=== PATIENT | female | born 1945 | race Caucasian/White ===

== ENCOUNTER 2017-08-09 02:38 | Emergency (ER) | payer MEDICARE, OTHER ==
[~2017-08-09] VITALS: Ht 170.2 cm; Wt 103.0 kg
[~2017-08-09 02:38] MED LIST: ALDACTONE50 MG PO; CELEXA20 MG PO; LACTULOSE20 GM/30 M PO; LEVEMIR100 UNIT/1 SQ; METFORMIN; OMEPRAZOLE20 MG PO; ORAZINC220 MG PO; TRADJENTA5 MG PO; URSODIOL300 MG PO; XIFAXAN550 MG PO
[2017-08-09] MEDS ORDERED: PANTOPRAZOLE 40 MG 10ML VIAL IV STA (02:48)
[2017-08-09] MEDS ORDERED: VALCYTE450 MG PO (02:58)
[2017-08-09] MEDS ORDERED: DAPSONE100 MG PO (02:58)
[2017-08-09] MEDS ORDERED: MYCOPHENOLIC ACID PO (02:58)
[2017-08-09] MEDS ORDERED: PREDNISONE10 MG PO (02:58)
[2017-08-09] MEDS ORDERED: ASPIR 8181 MG PO (02:58)
[2017-08-09] MEDS ORDERED: NEXIUM40 MG PO (02:58)
[2017-08-09] MEDS ORDERED: CYCLOSPORINE100 MG PO (02:58)
[2017-08-09] MEDS ORDERED: METOPROLOL SUCC25 MG PO (02:58)
[2017-08-09] MEDS ORDERED: CYCLOSPORINE25 MG PO (02:58)
[2017-08-09] MEDS ORDERED: NOVOLOG100 UNITS1 (02:58)
[2017-08-09] MEDS ORDERED: LEVEMIR100 UNIT/1 (02:58)
[2017-08-09] MEDS ORDERED: MAGNESIUM/ALUMINUM/SIMETHICONE 30 ML UDC PO ONE (03:00)
[2017-08-09] MEDS ORDERED: LIDOCAINE VISC 2% SOLN 15 ML UDC PO ONE (03:00)
[2017-08-09] MEDS ORDERED: BELLADONNA ALK/PHENOBARBITAL 5 ML UDC PO ONE (03:00)
[2017-08-09 03:04] LABS: BASOPHILS % 0.2 % (0.0-1.0); HEMATOCRIT 31.8 % (34.2-44.1); HEMOGLOBIN 10.6 g/dL (12.0-16.0); LYMPHOCYTES # (AUTO) 0.8 (1.0-3.2); MEAN CORPUSCULAR HEMOGLOBIN 30.5 pg (28-32); MEAN CORPUSCULAR HGB CONC 33.3 g/dL (31-35); MEAN CORPUSCULAR VOLUME 91.4 fL (81-99); MONOCYTES # (AUTO) 0.5 (0.2-0.8); MONOCYTES % 10.9 % (4.4-11.3); NEUTROPHILS # (AUTO) 2.8 (2.1-6.9); NEUTROPHILS % 68.2 % (38.7-80.0); PLATELET COUNT 248 x10e3/uL (140-360); RED BLOOD COUNT 3.48 x10e6/uL (3.6-5.1); RED CELL DISTRIBUTION WIDTH 13.9 % (11.7-14.4)
[2017-08-09] MEDS ORDERED: VELTASSA PO (03:18)
[2017-08-09 03:25] LABS: ALBUMIN 3.6 g/dL (3.5-5.0); ALBUMIN/GLOBULIN RATIO 1.2 (0.8-2.0); CALCIUM 9.5 mg/dL (8.4-10.2); CREATININE, SERUM 1.55 mg/dL (0.57-1.11)
--- NOTE | 2017-08-09 04:04 | Diagnostic Imaging Report ---
EXAMINATION: CHEST SINGLE (PORTABLE) INDICATION: Chest pain. COMPARISON: None FINDINGS: TUBES and LINES: None. LUNGS: Lungs are not well inflated. Lungs are clear. There is no evidence of pneumonia or pulmonary edema. PLEURA: No pleural effusion or pneumothorax. HEART AND MEDIASTINUM: Cardiac size is mildly enlarged. BONES AND SOFT TISSUES: No acute osseous lesion. Soft tissues are unremarkable. UPPER ABDOMEN: No free air under the diaphragm. IMPRESSION: No acute thoracic abnormality. Signed by: Dr. Amilcar Farias M.D. on 08/09/2017 4:01 AM
[2017-08-09 04:07] VITALS: BP 156/94
== END 2017-08-09 03:45 | disposition home or self-care (01) ==
LOC: ER 02:38
DX: R07.89 Other chest pain (principal); K21.9 Gastro-esophageal reflux disease without esophagitis; E11.9 Type 2 diabetes mellitus without complications; Z85.05 Personal history of malignant neoplasm of liver
CPT/HCPCS: 36415; 71045; 80053; 82150; 82550; 82553; 83690; 84484; 85025; 93005; 99284

== ENCOUNTER 2017-09-07 15:38 | Emergency (ER) | payer MEDICARE, OTHER ==
[~2017-09-07] VITALS: Ht 170.2 cm; Wt 95.3 kg
[~2017-09-07 15:38] MED LIST changes: +ASPIR 8181 MG PO; +CYCLOSPORINE100 MG PO; +CYCLOSPORINE25 MG PO; +DAPSONE100 MG PO; +LEVEMIR100 UNIT/1; +METOPROLOL SUCC25 MG PO; +MYCOPHENOLIC ACID PO; +NEXIUM40 MG PO; +NOVOLOG100 UNITS1; +PREDNISONE10 MG PO; +VALCYTE450 MG PO; +VELTASSA PO
[2017-09-07 17:00] LABS: ANION GAP 14.3 mmol/L (8-16); CALCIUM 9.4 mg/dL (8.4-10.2); CREATININE, SERUM 1.35 mg/dL (0.57-1.11)
[2017-09-07 17:02] LABS: POTASSIUM 5.3 mmol/L (3.5-5.1)
== END 2017-09-07 19:39 | disposition home or self-care (01) ==
LOC: ER 15:38
DX: E87.5 Hyperkalemia (principal); I10 Essential (primary) hypertension; E11.9 Type 2 diabetes mellitus without complications; Z85.05 Personal history of malignant neoplasm of liver; Z94.4 Liver transplant status
CPT/HCPCS: 36415; 80048; 93005; 99283

== ENCOUNTER → 2017-11-07 | Day surgery (SDC) | payer MEDICARE, OTHER ==
[2017-11-03 13:58] LABS: BASOPHILS % 0.6 % (0.0-1.0); EOSINOPHILS # (AUTO) 0.1 (0.0-0.4); EOSINOPHILS % 3.9 % (0.0-6.0); HEMATOCRIT 35.6 % (34.2-44.1); HEMOGLOBIN 11.5 g/dL (12.0-16.0); LYMPHOCYTES # (AUTO) 0.7 (1.0-3.2); LYMPHOCYTES % 19.9 % (18.0-39.1); MEAN CORPUSCULAR HEMOGLOBIN 32.1 pg (28-32); MEAN CORPUSCULAR HGB CONC 32.3 g/dL (31-35); MEAN CORPUSCULAR VOLUME 99.4 fL (81-99); MONOCYTES # (AUTO) 0.5 (0.2-0.8); MONOCYTES % 12.9 % (4.4-11.3); NEUTROPHILS # (AUTO) 2.2 (2.1-6.9); NEUTROPHILS % 62.1 % (38.7-80.0); PLATELET COUNT 194 x10e3/uL (140-360); RED BLOOD COUNT 3.58 x10e6/uL (3.6-5.1); RED CELL DISTRIBUTION WIDTH 12.6 % (11.7-14.4)
[2017-11-03 14:04] LABS: INR 0.85; PARTIAL THROMBOPLASTIN TIME 27.9 seconds (23.8-35.5); PROTHROMBIN TIME 12.4 seconds (11.9-14.5)
[2017-11-03 14:10] LABS: ALBUMIN 3.8 g/dL (3.5-5.0); ALBUMIN/GLOBULIN RATIO 1.2 (0.8-2.0); ANION GAP 14.8 mmol/L (8-16); CALCIUM 9.4 mg/dL (8.4-10.2); CREATININE, SERUM 1.47 mg/dL (0.57-1.11)
[2017-11-03 14:16] LABS: POTASSIUM 5.8 mmol/L (3.5-5.1)
[~2017-11-07] MED LIST changes: +FENTANYL CITRATE/PF 100MCG/2 ML INJ ONE; -LEVEMIR100 UNIT/1; +LEVEMIR100 UNIT/1 SC; +MAGNESIUM OXID400 MG PO; +MIDAZOLAM HCL 2 MG/2 ML VIAL ONE; -NOVOLOG100 UNITS1; +NOVOLOG100 UNITS1 SC; +OR PHACO EYE KIT ONE; +PREOP PHACO EYE KIT ONE
[2017-11-07 15:15] VITALS: BP 155/92
== END | disposition home or self-care (01) ==
LOC: OR 12:02
PROVIDERS: ATTEND Ophthalmology
DX: H25.11 Age-related nuclear cataract, right eye (principal); I10 Essential (primary) hypertension; E11.65 Type 2 diabetes mellitus with hyperglycemia; G47.33 Obstructive sleep apnea (adult) (pediatric); Z01.812 Encounter for preprocedural laboratory examination; Z79.4 Long term (current) use of insulin; Z79.82 Long term (current) use of aspirin; Z94.4 Liver transplant status; Z85.05 Personal history of malignant neoplasm of liver
CPT/HCPCS: 36415 ×2; 66984; 80053; 82948; 85025; 85610; 85730; J2250; V2632

== ENCOUNTER → 2017-11-28 | Day surgery (SDC) | payer MEDICARE, OTHER ==
[2017-11-28 14:15] VITALS: BP 138/99
--- OUTSIDE RECORDS SUMMARY | 2017-11-28 14:46 | XMS REPORT | Clinical Summary ---
Author Author [facility] Organization [facility] Address Unknown Phone Unavailable Care Team Providers Care Wharf Tally Clerk Name Role Phone Luke Arredondo MD PCP Allergies No Known Allergies Current Medications Prescription Sig. Disp. Refills Start End Date Status Date LEVEMIR FLEXTOUCH 100 55 units nightly 1 06/17/19 Active unit/mL (3 mL) insulin 16 pen omeprazole (PriLOSEC) 20 TAKE ONE CAPSULE BY MOUTH 0 06/02/19 Active MG capsule TWICE A DAY (NEED APPT) 16 XIFAXAN 550 mg tablet Take 550 mg by mouth 2 0 20 Active (two) times a day. 16 lactulose 10 gram/15 mL Take by mouth as needed. Active solution calcium carbonate-vitamin Take 1 tablet by mouth Active D3 (CALCIUM 600 + D,3,) daily. 600 mg(1,500mg) -200 unit per tablet furosemide (LASIX) 40 mg Take 40 mg by mouth Active tablet daily. spironolactone Take 50 mg by mouth Active (ALDACTONE) 50 MG tablet daily. NOVOLOG FLEXPEN 100 INJECT 10 UNITS UNDER THE 2 06/08/19 Active unit/mL insulin pen SKIN 3 (THREE) TIMES 17 DAILY BEFORE MEALS. Active Problems Problem Noted Date HCC (hepatocellular carcinoma) (HCC) 11/18/2015 Anasarca 10/27/2015 Cirrhosis of liver without mention of alcohol 07/15/2015 Depressive disorder 07/15/2015 Nonalcoholic steatohepatitis (BURNS) 07/15/2015 Encephalopathy, portal systemic (HCC) 07/15/2015 Family History Medical History Relation Name Comments Cancer Father Stroke Maternal Grandfather Stroke Maternal Grandmother Relation Name Status Comments Father Maternal Grandfather Maternal Grandmother Social History Tobacco Use Types Packs/Day Years Used Date Current Every Day Smoker Cigarettes 0.25 Comments: started as a kid; then quit; started again at age 62 Alcohol Use Drinks/Week oz/Week Comments No Sex Assigned at Date Recorded Not on file Last Filed Vital Signs Not on file Plan of Treatment Health Maintenance Due Date Last Done Comments COLON CANCER SCREENING 09/12/1997 SHINGRIX VACCINE (#1) 09/12/1997 ZOSTER VACCINE 2007 PNEUMOCOCCAL 09/12/2012 POLYSACCHARIDE VACCINE AGE 65 AND OVER PNEUMOCOCCAL-13 09/12/2012 BREAST CANCER SCREENING 08/02/2017 08/03/2015 INFLUENZA VACCINE 2017 12/29/2015, 12/30/2014, 12/06/2012 Implants Implanted Type Area Manga Artist Device Expiration Model / Identifier Date Serial / Lot Diagnostic Catheters Tempo IPM N/A: N/A CORDJuristat PERNELL., A [id number] Selective Catheters - Visceral 5fr SUPPLIES [employer] / Shape Cobra Ii (C2) 100cm Flow PATIENT / Rate,Ml/Sec 22 Sideholes 0 Nylon BILLABLE Tungsten-Filled Neon Tip Slx Coating Guidewire Compatibility .038" 1200 Psi 5/Box - [id number] Implanted: 09/01/2015 (Quantity not on file) Stent In The Liver Stent Results Not on fileafter 11/27/2016 Insurance Payer Benefit Subscriber ID Type Phone Address Plan / Group MEDICARE MEDICARE xxxxxxxxxxx Medicare [place], [place] PART A AND B [facility] MED xxxxxxxx [place] [address]
== END | disposition home or self-care (01) ==
LOC: OR 10:44
PROVIDERS: ATTEND Ophthalmology
DX: H25.12 Age-related nuclear cataract, left eye (principal); E11.22 Type 2 diabetes mellitus with diabetic chronic kidney disease; I12.9 Hypertensive chronic kidney disease with stage 1 through stage 4 chronic kidney disease, or unspecified chronic kidney disease; N18.9 Chronic kidney disease, unspecified; G47.33 Obstructive sleep apnea (adult) (pediatric); Z94.4 Liver transplant status; Z85.05 Personal history of malignant neoplasm of liver; Z79.4 Long term (current) use of insulin
CPT/HCPCS: 36415; 66984; 82948; J2250; V2632

== ENCOUNTER 2018-10-25 22:58 | Emergency (ER) | payer MEDICARE, OTHER ==
[~2018-10-25] VITALS: Ht 170.2 cm; Wt 95.3 kg
[~2018-10-25 22:58] MED LIST changes: -FENTANYL CITRATE/PF 100MCG/2 ML INJ ONE; -MIDAZOLAM HCL 2 MG/2 ML VIAL ONE; -OR PHACO EYE KIT ONE; -PREOP PHACO EYE KIT ONE
--- OUTSIDE RECORDS SUMMARY | 2018-10-25 23:03 | XMS REPORT | Continuity of Care Document ---
Author Author [facility] Organization [facility] [employer] [facility] Information [employer] Address Unknown Phone Unavailable Care Team Providers Care Date Night Sitter Name Role Phone [facility] Information [employer] Unavailable Unavailable Problems Problem Status Onset Date Classification Date Reported Comments Source J20.9 - "ACUTE BRONCHITIS, UNSPECIFIED" Active 10/26/2015 [facility] DDC- EGD W/BAND Active 01/17/2011 [facility] Final: Acute Bronchitis 01/24/2014 ELEUTERIO Nance Medications Medication Details Route Status Patient Instructions Ordering Provider Order Date Source Metformin , Active 01/26/2014 [facility] Aspirin (Aspir 81) 81 Mg Tablet. Daily [facility] Cyclosporine 25 Mg Capsule Twice A Day [facility] Cyclosporine 100 Mg Capsule Twice A Day [facility] Dapsone 100 Mg Tablet Daily [facility] Esomeprazole Magnesium (Nexium) 40 Mg Capsule. Twice A Day [facility] Insulin Aspart (Novolog) 100 Units/1 Ml Inj [facility] Insulin Detemir (Levemir) 100 Unit/1 Ml Vial [facility] Metoprolol Succinate 25 Mg Tab.er.24h Daily [facility] Mycophenolic Acid Every 12 Hours [facility] Prednisone 10 Mg Tab Daily [facility] Valganciclovir Hcl (Valcyte) 450 Mg Tablet Four Times Daily [facility] Veltassa 16.8 Gm Daily [facility] Allergies, Adverse Reactions, Alerts No Known Medication Allergies Immunizations No Data Provided for This Section Results Order Name Results Value Reference Range Date Interpretation Comments Source Estimated glomerular filtration rate (GFR) determination Estimated glomerular filtration rate (GFR) determination 39 60 09/07/2017 [facility] Glucose measurement Glucose measurement 163 74 - 118 09/07/2017 [facility] Serum or plasma anion gap Serum or plasma anion gap 14.3 8 - 16 09/07/2017 [facility] Serum or plasma calcium measurement (mass/volume) Serum or plasma calcium measurement (mass/volume) 9.4 8.4 - 10.2 09/07/2017 [facility] Serum or plasma carbon dioxide, total measurement (moles/volume) Serum or plasma carbon dioxide, total measurement (moles/volume) 20 22 - 29 09/07/2017 [facility] Serum or plasma chloride measurement (moles/volume) Serum or plasma chloride measurement (moles/volume) 106 98 - 107 09/07/2017 [facility] Serum or plasma creatinine measurement (mass/volume) Serum or plasma creatinine measurement (mass/volume) 1.35 0.57 - 1.11 09/07/2017 [facility] Serum or plasma potassium measurement (moles/volume) Serum or plasma potassium measurement (moles/volume) 5.3 3.5 - 5.1 09/07/2017 [facility] Serum or plasma sodium measurement (moles/volume) Serum or plasma sodium measurement (moles/volume) 135 136 - 145 09/07/2017 [facility] Serum or plasma urea nitrogen measurement (mass/volume) Serum or plasma urea nitrogen measurement (mass/volume) 31 7 - 26 09/07/2017 [facility] Serum or plasma urea nitrogen/creatinine mass ratio Serum or plasma urea nitrogen/creatinine mass ratio 23 6 - 25 09/07/2017 [facility] Automated blood basophil count (count/volume) Automated blood basophil count (count/volume) 0.0 0.0 - 0.1 08/09/2017 [facility] Automated blood basophil count as percentage of total leukocytes Automated blood basophil count as percentage of total leukocytes 0.2 0.0 - 1.0 08/09/2017 [facility] Automated blood eosinophil count Automated blood eosinophil count 0.0 0.0 - 0.4 08/09/2017 [facility] Automated blood eosinophil count as percentage of total leukocytes Automated blood eosinophil count as percentage of total leukocytes 0.0 0.0 - 6.0 08/09/2017 [facility] Automated blood hematocrit (volume fraction) Automated blood hematocrit (volume fraction) 31.8 34.2 - 44.1 08/09/2017 [facility] Automated blood lymphocyte count as percentage ot total leukocytes Automated blood lymphocyte count as percentage ot total leukocytes 19.0 18.0 - 39.1 08/09/2017 [facility] Automated blood monocyte count as percentage of total leukocytes Automated blood monocyte count as percentage of total leukocytes 10.9 4.4 - 11.3 08/09/2017 [facility] Automated blood neutrophil count Automated blood neutrophil count 2.8 2.1 - 6.9 08/09/2017 [facility] Automated blood platelet count (count/volume) Automated blood platelet count (count/volume) 248 140 - 360 08/09/2017 [facility] Automated blood segmented neutrophil count as percentage of total leukocytes Automated blood segmented neutrophil count as percentage of total leukocytes 68.2 38.7 - 80.0 08/09/2017 [facility] Automated erythrocyte mean corpuscular hemoglobin (mass per erythrocyte) Automated erythrocyte mean corpuscular hemoglobin (mass per erythrocyte) 30.5 28 - 32 08/09/2017 [facility] Automated erythrocyte mean corpuscular hemoglobin concentration measurement (mass/volume) Automated erythrocyte mean corpuscular hemoglobin concentration measurement (mass/volume) 33.3 31 - 35 08/09/2017 [facility] Automated erythrocyte mean corpuscular volume Automated erythrocyte mean corpuscular volume 91.4 81 - 99 08/09/2017 [facility] Blood erythrocytes automated count (number/volume) Blood erythrocytes automated count (number/volume) 3.48 3.6 - 5.1 08/09/2017 [facility] Blood hemoglobin measurement (moles/volume) Blood hemoglobin measurement (moles/volume) 10.6 12.0 - 16.0 08/09/2017 [facility] Blood leukocytes automated count (number/volume) Blood leukocytes automated count (number/volume) 4.11 4.8 - 10.8 08/09/2017 [facility] Blood lymphocytes count (number/volume) Blood lymphocytes count (number/volume) 0.8 1.0 - 3.2 08/09/2017 [facility] Blood monocytes automated count (number/volume) Blood monocytes automated count (number/volume) 0.5 0.2 - 0.8 08/09/2017 [facility] Plasma globulin measurement (mass/volume) Plasma globulin measurement (mass/volume) 3.1 2.3 - 3.5 08/09/2017 [facility] Serum or plasma alanine aminotransferase measurement (enzymatic activity/volume) Serum or plasma alanine aminotransferase measurement (enzymatic activity/volume) 149 0 - 55 08/09/2017 [facility] Serum or plasma albumin measurement (mass/volume) Serum or plasma albumin measurement (mass/volume) 3.6 3.5 - 5.0 08/09/2017 [facility] Serum or plasma albumin/globulin mass ratio Serum or plasma albumin/globulin mass ratio 1.2 0.8 - 2.0 08/09/2017 [facility] Serum or plasma alkaline phosphatase measurement (enzymatic activity/volume) Serum or plasma alkaline phosphatase measurement (enzymatic activity/volume) 241 40 - 150 08/09/2017 [facility] Serum or plasma amylase measurement (enzymatic activity/volume) Serum or plasma amylase measurement (enzymatic activity/volume) 37 25 - 125 08/09/2017 [facility] Serum or plasma creatine kinase MB measurement (mass/volume) Serum or plasma creatine kinase MB measurement (mass/volume) 1.00 0 - 5.0 08/09/2017 [facility] Serum or plasma creatine kinase measurement (enzymatic activity/volume) Serum or plasma creatine kinase measurement (enzymatic activity/volume) 23 29 - 168 08/09/2017 [facility] Serum or plasma lipase measurement (enzymatic activity/volume) Serum or plasma lipase measurement (enzymatic activity/volume) 37 8 - 78 08/09/2017 [facility] Serum or plasma protein measurement (mass/volume) Serum or plasma protein measurement (mass/volume) 6.7 6.5 - 8.1 08/09/2017 [facility] Serum or plasma total bilirubin measurement (mass/volume) Serum or plasma total bilirubin measurement (mass/volume) 1.5 0.2 - 1.2 08/09/2017 [facility] Troponin I measurement by highly sensitive enzyme immunoassay Troponin I measurement by highly sensitive enzyme immunoassay 0.003 0 - 0.300 08/09/2017 [facility] Red Cell Distribution Width 13.9 11.7 - 14.4 08/09/2017 [facility] IM GRANULOCYTES % 1.7 0.0 - 1.0 08/09/2017 [facility] Absolute Immature Granulocyte (auto 0.07 0 - 0.1 08/09/2017 [facility] Aspartate Amino Transf (AST/SGOT) 48 5 - 34 08/09/2017 [facility] BEDSIDE GLUCOSE TESTING Comment1 Notify RN/MD 01/18/2011 NA [facility] BEDSIDE GLUCOSE TESTING Gluc POC Lifscn 241.0 65 - 110 01/18/2011 HI <sup>1</sup>Interpretive Data: Upper Reportable Limit: 200 mg/dL. [facility] Pathology Reports No Data Provided for This Section Diagnostic Reports Report Value Date Source Chest 2 views DX EXAM: XR CHEST 2 VIEWS DATE: 04/19/2016 3:33 PM CLERICAL ASSOCIATE INDICATION: Z01.818 Encounter for other preprocedural examination COMPARISON: 10/26/2015 TECHNIQUE: PA and lateral chest radiographs FINDINGS: No lung parenchymal or pleural abnormalities are seen. Mehnaz and pulmonary vasculature are normal. Cardiomediastinal silhouette is normal in appearance. No acute bony abnormality is identified. Multilevel spondylosis is seen in the thoracic spine. Surgical clips are seen in the right upper quadrant of the abdomen, some which are new from the prior exam. A TIPS shunt is again demonstrated as well. IMPRESSION: 1. No acute cardiopulmonary abnormality. 2. Surgical clips in the right upper quadrant of the abdomen along with TIPS shunt. Some of the surgical clips are new from the prior exam. 04/19/2016 [facility] Chest 2 views DX EXAM: XR CHEST 2 VIEWS DATE: 10/26/2015 at 1146 hours INDICATION: J20.9 Acute bronchitis, unspecified COMPARISON: None available TECHNIQUE: PA and lateral chest radiographs FINDINGS: Lines and tubes: A TIPS is partially visualized, projecting in satisfactory position. Lungs and pleura: No pulmonary or pleural based abnormality is identified. Heart and mediastinum: The heart size is normal. The mediastinal contours are normal. Bones: No acute bony abnormality is identified. Small osteophytes are present at the acromioclavicular and glenohumeral joints, and at the mid thoracic spine. IMPRESSION: No acute cardiopulmonary abnormality. 10/26/2015 [facility] Chest 2 views Chest x-ray 2 views INDICATION: Bronchitis COMPARISON: None FINDINGS: Heart size and central vasculature are within normal limits. There is no effusion or focal pneumonia. No pneumothorax. No acute osseous pathology. IMPRESSION: No acute cardiopulmonary process. 01/21/2014 ELEUTERIO Nance Consultation Notes No Data Provided for This Section Discharge Summaries No Data Provided for This Section History and Physicals No Data Provided for This Section Vital Signs No Data Provided for This Section Encounters Location Location Details Encounter Type Encounter Number Reason For Visit Attending Provider ADM Date DC Date Status Source [facility] Outpatient [id number] DDC- EGD W/TANO YEAGER 01/18/2011 Active [facility] [place] [facility] [id number] Minajoellen Hernandez 01/21/2014 01/22/2014 [facility] [place] [facility] [place] [facility] [id number] Mina Hernandez 10/26/2015 [facility] [place] [facility] [id number] Luke Arredondo 04/19/2016 04/20/[facility] [place] [facility] Room [id number] KIANNA KAUR MD 08/09/2017 08/09/2017 [facility] Departed Emergency Room [id number] DARYN NORIEGA MD 09/07/2017 09/07/2017 [facility] Procedures No Data Provided for This Section Assessment and Plan No Data Provided for This Section Plan of Care Plan of Care Date Source Discharge Date 09/07/17 7:39pm Disposition HOME, SELF-CARE Condition at Discharge Stable Instructions/Education Provided Hyperkalemia Forms Provided Work/School Excuse Prescriptions See Medication Section Referrals LUKE ARREDONDO Order Date: As needed Address: [address] [place] [address] [id number] Additional Instructions/Education FOLLOW UP WITH DOCTORS SCHEDULED RETURN TO THE ER NEEDED 09/07/2017 [facility] Social History Social History Date Source Social History Problem Response Recorded Date/Time Onset Date Status Hx Psychiatric Problems Yes 12/04/2010 7:50pm Not Applicable Not Applicable Hx Eating Disorder No 12/04/2010 7:50pm Not Applicable Not Applicable Hx Substance Use Disorder No 12/04/2010 7:50pm Not Applicable Not Applicable Hx Depression Yes 12/04/2010 7:50pm Not Applicable Not Applicable Hx Alcohol Use No 12/04/2010 7:50pm Not Applicable Not Applicable Hx Substance Use Treatment No 12/04/2010 7:50pm Not Applicable Not Applicable Hx Physical Abuse No 12/04/2010 7:50pm Not Applicable Not Applicable Smoking Status Start Date Stop Date Never Smoker 09/07/2017 [facility] No data available for this section 04/20/2016 [facility] [place] Family History No Data Provided for This Section Advance Directives Order Name Results Value Date Source Advance Directives Advance Directives Directive Response Recorded Date/Time Does the patient have an advance directive? Yes 07/22/13 10:17am If yes, is advance directive on file with [facility]? No 12/04/10 7:50pm If not on file with [facility] will patient provide a copy? Yes 08/09/17 5:10am Do you have a Directive to Physician? No 09/07/17 4:31pm Do you have a Medical Power of Raise Miner? No 09/07/17 4:31pm Do you have an out of hospital Do Not Resuscitate Order? No 09/07/17 4:31pm Do you have any special needs we should be aware of? No 09/07/17 4:31pm Do you have a support person here with you today? Yes 09/07/17 4:31pm Did patient receive Notice of Privacy Practices? Yes 09/07/17 4:31pm Did patient receive patient rights and responsibilities? Yes 09/07/17 4:31pm 09/07/2017 [facility] Functional Status No Data Provided for This Section
--- OUTSIDE RECORDS SUMMARY | 2018-10-25 23:03 | XMS REPORT | Clinical Summary ---
Author Author [facility] Organization [facility] Address Unknown Phone Unavailable Care Team Providers Care Driver Salesman Name Role Phone Luke Arredondo MD PCP Allergies No Known Allergies Medications End Date Status Medication Sig Dispensed Refills Start Date Active LEVEMIR FLEXTOUCH 100 55 units 1 06/16/ unit/mL (3 mL) insulin nightly 6 pen Active omeprazole (PriLOSEC) 20 TAKE ONE 0 06/01/ MG capsule CAPSULE BY 6 MOUTH TWICE A DAY (NEED APPT) Active XIFAXAN 550 mg tablet Take 550 mg 0 06/02/201 by mouth 2 6 (two) times a day. Active lactulose 10 gram/15 mL Take by mouth 0 solution as needed. Active calcium carbonate-vitamin Take 1 tablet 0 D3 (CALCIUM 600 + D,3,) by mouth 600 mg(1,500mg) -200 unit daily. per tablet Active furosemide (LASIX) 40 mg Take 40 mg by 0 tablet mouth daily. Active spironolactone Take 50 mg by 0 (ALDACTONE) 50 MG tablet mouth daily. Active NOVOLOG FLEXPEN 100 INJECT 10 2 06/07/ unit/mL insulin pen UNITS UNDER 7 THE SKIN 3 (THREE) TIMES DAILY BEFORE MEALS. Active Problems Problem Noted Date HCC (hepatocellular carcinoma) 11/18/2015 Anasarca 10/27/2015 Cirrhosis of liver without mention of alcohol 07/15/2015 Depressive disorder 07/15/2015 Nonalcoholic steatohepatitis (BURNS) 07/15/2015 Encephalopathy, portal systemic 07/15/2015 Family History Medical History Relation Name Comments Cancer Father Stroke Maternal Grandfather Stroke Maternal Grandmother Relation Name Status Comments Father Maternal Grandfather Maternal Grandmother Social History Date Tobacco Use Types Packs/Day Years Used Current Every Day Smoker Cigarettes 0.25 Comments: started as a kid; then quit; started again at age 62 Drinks/Week oz/Week Comments Alcohol Use No Sex Assigned at Date Recorded Not on file Industry Job Start Date Occupation Not on file Not on file Not on file Travel End Travel History Travel Start No recent travel history available. Last Filed Vital Signs Not on file Plan of Treatment Health Maintenance Due Date Last Done Comments COLONOSCOPY SCREENING 09/12/1997 SHINGLES VACCINES (#1) 09/12/1997 65+ PNEUMOCOCCAL VACCINE 09/12/2012 (1 of 2 - PCV13) BREAST CANCER SCREENING 08/02/2017 08/03/2015 INFLUENZA VACCINE 2018 12/29/2015, 12/30/2014, 12/06/2012 Implants Device Identifier Shelf Expiration Date Model / Serial / Lot Implanted Type Area Manufactur er [id number] / / Diagnostic Catheters Tempo IPM N/A: N/A CORDIS Selective Catheters - Visceral 5fr SUPPLIES PERNELL., A Shape Cobra Ii (C2) 100cm Flow PATIENT J&J Rate,Ml/Sec 22 Sideholes 0 [employer] Tungsten-Filled Neon Tip Slx Coating Guidewire Compatibility .038" 1200 Psi 5/Box - [id number] Implanted: 09/01/[address] [facility] (Quantity not on file) Stent In The Liver Stent Results Not on fileafter 10/24/2017 Insurance Type Payer Benefit Subscriber ID Effective Phone Address Plan / Dates Group Medicare MEDICARE MEDICARE xxxxxxxxxxx 2012-P [place]ORE, PART A AND resent [place] B Commercial [employer] MED xxxxxxxx 2015-P SUPPLEMENT resent Advance Directives For more information, please contact: [phone] Patient Door Framer Explanation Type Date Recorded Advance Directives, Living Will and Medical Power of J2Ee Developer
--- OUTSIDE RECORDS SUMMARY | 2018-10-25 23:03 | XMS REPORT | Summary of Care ---
Author Author [facility] - Health Organization [facility] Address Unknown Phone Unavailable Care Team Providers Care Bridge Mechanic Name Role Phone Hardeep Lazcano PCP Moose Mckeon MD Unavailable Reason for Visit * Reason Comments Follow-up Diabetes Mellitus II Encounter Details Care Team Description Date Type Department Neeta Xiong MD [address] [place] [address] Uncontrolled type 2 diabetes mellitus with complication, with long-term current use of insulin (Primary Dx); Cirrhosis of liver without ascites, unspecified hepatic cirrhosis type; Pure hypercholesterolemia 09/10/2018 Office Visit [facility] [address] [place] [address] Allergies No Known Allergiesdocumented as of this encounter (statuses as of 09/16/2018) Medications End Date Status Medication Sig Dispensed Refills Start Date Active CYANOCOBALAMIN, VITAMIN Take 5,000 mg 0 B-12, (VITAMIN B-12 ORAL) by mouth daily. Active ERGOCALCIFEROL, VITAMIN Take 50,000 0 D2, (VITAMIN D ORAL) Units by mouth daily. Active cholecalciferol, vitamin Take 1,000 0 D3, (VITAMIN D3) 1,000 Units by unit tablet mouth daily. Active Calcium-Cholecalciferol, Take by 0 D3, (CALCIUM 600 + D,3,) mouth. 600 mg calcium- 200 unit Cap Active magnesium oxide 400 mg TAKE 1 TABLET 3 tablet BY MOUTH QHS 7 Active vitamin C with khanh hips Take 250 mg 0 (VITAMIN C) 250 mg tablet by mouth daily. Active mycophenolate sodium Take 360 mg 0 (MYFORTIC) 360 mg EC by mouth tablet every 12 (twelve) hours. Active NOVOLOG FLEXPEN 100 INJECT 10 30 mL 2 unit/mL UNITS UNDER 8 injectionIndications: THE SKIN 3 Uncontrolled type 2 (THREE) TIMES diabetes mellitus with DAILY BEFORE complication, with MEALS. long-term current use of insulin Active amitriptyline 25 mg TAKE 1 TABLET 5 tablet BY MOUTH 9 EVERYDAY AT BEDTIME Active esomeprazole 40 mg TAKE 1 1 capsule CAPSULE BY 9 MOUTH EVERY DAY NEEDED Active metoprolol succinate XL Take 25 mg by 1 25 mg 24 hr tablet mouth daily. 9 Active flash glucose scanning 1 Each daily. 1 Each 0 reader (FREESTYLE AYANA 9 14 DAY READER) MiscIndications: Uncontrolled type 2 diabetes mellitus with complication, with long-term current use of insulin Active blood sugar diagnostic USE 300 Strip 0 (FREESTYLE LITE STRIPS) DIRECTED TO 9 stripIndications: CHECK BLOOD Uncontrolled type 2 SUGAR 3 TIMES diabetes mellitus with A DAY. DX: complication, with E11.8, long-term current use of E11.65, Z79.4 insulin Active LEVEMIR FLEXTOUCH U-100 INJECT 22 40 mL 1 INSULN 100 unit/mL (3 mL) UNITS UNDER 9 injectionIndications: THE SKIN 2 Uncontrolled type 2 (TWO) TIMES diabetes mellitus with DAILY. complication, with long-term current use of insulin Active BD ULTRAFINE III MINI PEN INJECT 1 EACH 500 Each 0 31 gauge x 3/16" Ndle UNDER THE 9 SKIN 5 (FIVE) TIMES DAILY. Active FREESTYLE AYANA 14 DAY USE 2 Kit 2 SENSOR KitIndications: DIRECTED 9 Uncontrolled type 2 DAILY diabetes mellitus with complication, with long-term current use of insulin Active cycloSPORINE 25 mg Take 75 mg by 0 capsule mouth 2 (two) times daily. Active liraglutide 0.6 mg/0.1 mL Start at 9 mL 4 (18 mg/3 mL) 0.6mg daily, 9 injectionIndications: increase by Uncontrolled type 2 0.6mg every diabetes mellitus with week to a max complication, with of 3mg daily. long-term current use of insulin 09/10/2018 Discontinued modafinil (PROVIGIL) 200 Take 200 mg 0 mg tabletIndications: by mouth Pre-transplant evaluation daily. for chronic liver disease, Cirrhosis 09/10/2018 Discontinued multivitamin Take 1 Tab by 0 tabletIndications: mouth daily. Pre-transplant evaluation for chronic liver disease, Cirrhosis 09/10/2018 Discontinued lactulose 10 gram/15 mL Take 10 mL by 0 (15 mL) SolnIndications: mouth 4 Pre-transplant evaluation (four) times for chronic liver daily. disease, Cirrhosis 09/10/2018 Discontinued rifaximin (XIFAXAN) 550 Take 1 Tab by 180 Tab 3 mg Tab tabletIndications: mouth 2 (two) 3 Pre-transplant evaluation times daily. for chronic liver disease, Cirrhosis 09/10/2018 Discontinued spironolactone Take 25 mg by 0 (ALDACTONE) 50 mg tablet mouth 2 (two) times daily. 09/10/2018 Discontinued zinc sulfate (COMPOUNDED) Take 220 mg 0 22 mg/ml suspension by mouth 2 (two) times daily. 09/10/2018 Discontinued furosemide (LASIX) 40 mg Take 40 mg by 0 tablet mouth 2 (two) times daily. 09/10/2018 Discontinued VITAMIN D2 50,000 unit TAKE ONE 3 capsule CAPSULE BY 7 MOUTH ONCE A WEEEK 09/10/2018 Discontinued ASPIRIN (ASPIR-81 ORAL) Take by 0 mouth. 09/10/2018 Discontinued vitamin B-12 (VITAMIN Take 500 mcg 0 B-12) 500 mcg tablet by mouth daily. 09/10/2018 Discontinued valGANCIclovir 450 mg Take 450 mg 0 tablet by mouth daily. 09/10/2018 Discontinued cycloSPORINE 100 mg Take 100 mg 0 capsule by mouth 2 (two) times daily. 09/10/2018 Discontinued CYCLOSPORINE ORAL Take 25 mg by 0 mouth. 09/10/2018 Discontinued dapsone 100 mg tablet Take 100 mg 0 by mouth daily. 09/10/2018 Discontinued patiromer calcium Take by 0 sorbitex (VELTASSA) 16.8 mouth. gram PwPk 09/10/2018 Discontinued MAGNESIUM ORAL Take by 0 mouth. 09/10/2018 Discontinued GANCICLOVIR IV Inject 250 mg 0 PE/m2/day intravenously . 09/10/2018 Discontinued lancets (FREESTYLE Use as 300 Each 1 LANCETS) 28 gauge directed to 8 MiscIndications: check blood Uncontrolled type 2 sugar 3 times diabetes mellitus with daily. DX complication, with CODE E:11.9 long-term current use of insulin 09/10/2018 Discontinued ezetimibe 10 mg tablet Take 10 mg by 5 mouth daily. 9 documented as of this encounter (statuses as of 09/16/2018) Active Problems Problem Noted Date Pure hypercholesterolemia 05/07/2018 Low serum cortisol level 09/28/2017 Liver transplanted 09/20/2017 Neuropathy 06/03/2016 Uncontrolled type 2 diabetes mellitus with complication, with long-term 08/27/2012 current use of insulin Pre-transplant evaluation for chronic liver disease 08/08/2012 Cirrhosis Overview: 09/27/11 MRI w & wo contrast @ [facility] Portal hypertension with esophageal varices Overview: 09/27/11 MRI w & wo contrast @ [facility] Varices, esophageal Overview: 09/27/11 MRI w & wo contrast @ [facility] Ascites Overview: 09/27/11 MRI w & wo contrast @ [facility] Hepatic encephalopathy Splenomegaly Overview: 09/27/11 MRI w & wo contrast @ [facility] BURNS (nonalcoholic steatohepatitis) documented as of this encounter (statuses as of 09/16/2018) Immunizations Name Administration Dates Next Due Hep B, Adol or Pedi 12/31/2012, 12/06/2012 Dosage Influenza High Dose 12/29/2015, 12/30/2014 Influenza Virus Vaccine 12/06/2012 (3+ yrs) documented as of this encounter Social History Date Tobacco Use Types Packs/Day Years Used Former Smoker Smokeless Tobacco: Never Used Comments: quit 11/2010 Drinks/Week oz/Week Comments Alcohol Use less than a social drinker in past - last drink 08/2010 No Sex Assigned at Date Recorded Not on file Industry Job Start Date Occupation Not on file Not on file Not on file Travel End Travel History Travel Start No recent travel history available. documented as of this encounter Last Filed Vital Signs Reading Time Taken Comments Vital Sign 131/85 09/10/2018 1:55 PM CDT Blood Pressure 92 09/10/2018 1:42 PM CDT Pulse 37.1 C (98.8 F) 09/10/2018 1:42 PM CDT Temperature 20 09/10/2018 1:42 PM CDT Respiratory Rate 99% 09/10/2018 1:42 PM CDT Oxygen Saturation - - Inhaled Oxygen Concentration 104.4 kg (230 lb 3.2 oz) 09/10/2018 1:42 PM CDT Weight 170.2 cm (5' 7") 09/10/2018 1:42 PM CDT Height 36.05 09/10/2018 1:42 PM CDT Body Mass Index documented in this encounter Patient Instructions * Patient Instructions* Neeta Xiong MD - 09/10/2018 1:30 PM CDT - Decrase Levemir to 20 units twice a day. You may decrease by 2 units if you ibrahim ve fasting blood sugars <80 mg/dl. - Take Novolog 6 units with breakfast and lunch and dinner. Add additional Novolog based on your blood sugar: 150-200 : add extra 1 unit 200-250 : add extra 2 units 251-300: add extra 3 units 301-350: add extra 4 units 350-400: add extra 5 units > 400: add extra 6 units Victoza: You start at 0.6mg once daily injection and you take it for 2 weeks and after 2 weeks, if you are tolerating it ok without much nausea/ vomiting/ bloat ing, increase the dose to 1.2mg once daily and after 2 weeks to 1.8mg daily. Whi le using Victoza, if you have any abdominal pain, you need to get evaluated for Pancreatitis (inflammation of pancreas). documented in this encounter Progress Notes * Neeta Xiong MD - 09/10/2018 1:30 PM CDT CC: follow up for Diabetes Mellitus Type 2 HPI Patient is a 72 year old /White female who is here today for Diabetes M ellitus Type 2 diagnosed in 2002, complicated by retinopathy. Patient has no acu te problems today. Pt had HCC in 2015, had liver transplant 03/02. SPoke to her liver transplant doctor, worried abt weight gain, would prefer weig ht loss meds and ok with liraglutide. Pt has freestyle ayana. Avg BG 152, SD 45, above 180 28%, below 70 5%, in target 67% NO exercise. Pt states she does not eat much. STopped zetia due to jt pains. Currently on Levemir 24units bid, novolog 6 units with each meal + adding slidin g scale. HLP: Not on statins due to h/o liver transplant. On Zetia for a month now. DIABETIC HEALTH MAINTENANCE Last Lab Results Health Maintenance Due HGB A1C (%) Date Value 08/13/2012 8.0 (H) POCT HBA1C (%) Date Value 09/10/2018 7.1 (A) Diabetes related Health Maintenance Due Topic Date Due EYE EXAM 09/12/1955 PNEUMOCOCCAL VACCINES 65+ (1 of 2 - PCV13) 09/12/2012 CREATININE (SERUM) 12/06/2013 URINE MICROALBUMIN 04/12/2017 Previous Pneumococcal / Influenza Immunizations Name Date Influenza High Dose 12/29/2015, 12/30/2014 Influenza Virus Vaccine (3+ yrs) 12/06/2012 Recent Field Clerk Visits None Recent Ophthalmology Visits None CREATININE (MG/DL) Date Value 12/06/2012 0.70 MICROALB U Date Value 04/12/2016 5 ug/mL 06/25/2013 9 uG/ML CHOL (MG/DL) Date Value 08/13/2012 148 No results found for: TRIG No results found for: LDL Diabetes Relevant Medication Classes Last refreshed: 09/11/2018 8:01 AM: Prescribed CISCO inhibitor No Last refreshed: 09/11/2018 8:01 AM: Prescribed ARBs No Last refreshed: 09/11/2018 8:01 AM: Prescribed statins No Last refreshed: 09/11/2018 8:01 AM: Prescribed antiplatelets No Last refreshed: 09/11/2018 8:01 AM: Prescribed aspirin No Last refreshed: 09/11/2018 8:01 AM: On Fibrates No Current as of: 09/11/2018 8:01 AM HISTORY Past Medical History: Diagnosis Date Ascites 09/27/11 MRI w & wo contrast @ [facility] Cirrhosis 09/27/11 MRI w & wo contrast @ [facility] Diabetes mellitus 2003 on insulin since 2011 Hepatic encephalopathy BURNS (nonalcoholic steatohepatitis) Portal hypertension with esophageal varices 09/27/11 MRI w & wo contrast @ [facility] Splenomegaly 09/27/11 MRI w & wo contrast @ [facility] Varices, esophageal 09/27/11 MRI w & wo contrast @ [facility] REVIEW OF SYSTEMS General/Constitutional: No fever Eyes: + visual changes Cardiovascular: No chest pain or palpitations Pulmonary/Respiratory: No shortness of breath or cough Physical exam BP 131/85 | Pulse 92 | Temp 37.1 C (98.8 F) (Oral) | Resp 20 | Ht 5' 7" (1.702 m) | Wt 230 lb 3.2 oz (104.4 kg) | SpO2 99% | BMI 36.05 kg/m General: alert, oriented times three, no apparent distress, appearing age approp riate. Neck: neck supple, no adenopathy Lungs: no wheezes or crackles. Heart: regular rate and rhythm. Neuro: unremarkable without focal findings. Extremities/Musculoskeletal: no edema or lesions present Sensory exam of the foot is normal. Monofilament exam with sensation Right: 5/5, Left: 5/5. Lesions absent Ulcers Absent Peripheral pulses present 2+. Labs Reviewed labs from [facility] MICROAL/CR Latest Ref Range: 0 - 3500 ug/mmol creatinine 3645 (H) MICROALB U Latest Ref Range: 0 - 45 ug/mL 5 Recent Labs 09/10/18 [id number] 7.1* ASSESSMENT/PLAN Uncontrolled type 2 diabetes mellitus with complication, with long-term current use of insulin (primary encounter diagnosis) Comment: A1C 7.1 PLAN: Patient Instructions - Decrase Levemir to 20 units twice a day. You may decrease by 2 units if you ibrahim ve fasting blood sugars <80 mg/dl. - Take Novolog 6 units with breakfast and lunch and dinner. Add additional Novolog based on your blood sugar: 150-200 : add extra 1 unit 200-250 : add extra 2 units 251-300: add extra 3 units 301-350: add extra 4 units 350-400: add extra 5 units > 400: add extra 6 units Victoza: You start at 0.6mg once daily injection and you take it for 2 weeks and after 2 weeks, if you are tolerating it ok without much nausea/ vomiting/ bloat ing, increase the dose to 1.2mg once daily and after 2 weeks to 1.8mg daily. Whi le using Victoza, if you have any abdominal pain, you need to get evaluated for Pancreatitis (inflammation of pancreas). Cirrhosis Comment: s/p transplant Plan: - Continue follow up with OS fire assistant HLP: Not on statins due to liver transplant, on Zetia EDUCATION Counseled on this visit about:Glycemic/hemoglobin A1C targets Importance of adhering to the medical regimen outlined above Glucose monitoring and importance Diet education Various complications and preventive actions can be taken Proper foot care Weight loss * Yaneli Smith MA - 09/10/2018 1:30 PM CDT PT here for DM 2. Patient has pain 0 /10. Medications and allergies have been r eviewed with patient. Patient's last eye exam was a few months ago. Patient's last flu vaccination was 2017. Patient is a diabetic, so I did request shoes to be removed for foot exam. Hydrocapsule 14 day reader downloaded. Reports printed and given to physician to review and address. documented in this encounter Plan of Treatment Care Team Description Date Type Specialty Jenna Fishman MD [address] [place] [address] [phone] 12/31/2018 Office Visit Endocrinology Diabetes & Metabolism Health Maintenance Due Date Last Done Comments EYE EXAM 09/12/1955 DTaP,Tdap,and Td Vaccines 09/12/1966 (1 - Tdap) MAMMOGRAM 1987 COLONOSCOPY 09/12/1997 Zoster Recombinant 09/12/1997 Vaccine (SHINGRIX) (1 of 2) LUNG CANCER SCREEN: 09/12/2002 Recommended for age 55-80 with 30 + pack year history Medicare Wellness Visit 09/12/2012 PNEUMOCOCCAL VACCINES 65+ 09/12/2012 (1 of 2 - PCV13) CREATININE (SERUM) 12/06/2013 12/06/2012, 08/13/2012 URINE MICROALBUMIN 04/12/2017 04/12/2016, 12/30/2014, 06/25/2013 INFLUENZA VACCINE 10/14/2018 12/29/2015, 12/30/2014, 12/06/2012 HgA1C 03/13/2019 09/10/2018, 05/07/2018, 09/20/2017, Additional history exists FOOT EXAM 05/08/2019 05/07/2018, 05/07/2018, 09/20/2017, Additional history exists LDL-C 05/08/2019 05/07/2018, 09/20/2017, 05/15/2017, Additional history exists HEPATITIS C (HCV) SCREEN Completed 08/13/2012 Osteoporosis Screening Completed 08/30/2012 documented as of this encounter Procedures Comments Procedure Name Priority Date/Time Associated Diagnosis POCT HEMOGLOBIN A1C TEST Routine 09/10/2018 Uncontrolled type 2 diabetes mellitus with complication, with long-term current use of insulin documented in this encounter Results * POCT HEMOGLOBIN A1C TEST (09/10/2018) POCT HBA1C 7.1 (A) 4 - 6 % Specimen Blood - CAPILLARY documented in this encounter Visit Diagnoses Diagnosis Uncontrolled type 2 diabetes mellitus with complication, with long-term current use of insulin - Primary Cirrhosis of liver without ascites, unspecified hepatic cirrhosis type Pure hypercholesterolemia documented in this encounter Insurance Type Payer Benefit Subscriber ID Effective Phone Address Plan / Dates Group Medicare MEDICARE MEDICARE xxxxxxxxxxx 2012-P [phone] resent [id number] [place] [address] HMO/PPO/POS [facility] [id number] 2004-P [facility] resent documented as of this encounter
--- OUTSIDE RECORDS SUMMARY | 2018-10-25 23:03 | XMS REPORT | Summary of Care ---
Author Author [facility] - Health Organization [facility] Address Unknown Phone Unavailable Care Team Providers Care Small Order Cutter Name Role Phone Hardeep Lazcano PCP Moose Mckeon MD Unavailable Reason for Visit * Reason Comments Rx Concern/Question Encounter Details Care Team Description Date Type Department Neeta Xiong MD [address] [place] [address] Rx Concern/Question 09/11/2018 Telephone [facility] [place] [facility] [address] [place] [address] Allergies No Known Allergiesdocumented as of this encounter (statuses as of 09/11/2018) Medications End Date Status Medication Sig Dispensed [...] Each daily. 1 Each 0 reader (FREESTYLE RYAN 9 14 DAY READER) MiscIndications: Uncontrolled type [...] SKIN 5 (FIVE) TIMES DAILY. Active FREESTYLE RYAN 14 DAY USE 2 Kit 2 SENSOR [...] 3mg daily. long-term current use of insulin Active VICTOZA 3-TED 0.6 mg/0.1 Start at 9 mL 5 mL (18 mg/3 mL) injection 0.6mg daily, 9 increase by 0.6mg every week to a max of 1.8mg daily. documented as of this encounter (statuses as of 09/11/2018) Active Problems Problem Noted Date Pure hypercholesterolemia [...] as of this encounter (statuses as of 09/11/2018) Immunizations Name Administration Dates Next Due Hep [...] of this encounter Last Filed Vital Signs Not on filedocumented in this encounter Plan of Treatment Care Team Description Date Type Specialty Jenna Fishman MD [address] [place] [address] [phone] 12/31/2018 Office Visit Endocrinology Diabetes & Metabolism [...] Completed 08/30/2012 documented as of this encounter Results Not on filedocumented in this encounter Insurance Type Payer Benefit Subscriber ID Effective Phone Address Plan / Dates Group Medicare MEDICARE MEDICARE xxxxxxxxxxx 2012-P [phone] [address] resent [id number] [place] [id number] HMO/PPO/POS [facility] [id number] 2004-P [facility] resent documented as of this encounter
--- OUTSIDE RECORDS SUMMARY | 2018-10-25 23:04 | XMS REPORT | Summary of Care ---
Author Author [facility] - Health Organization [facility] Address Unknown Phone Unavailable Care Team Providers Care Plant Security Guard Name Role Phone Hardeep Lazcano PCP Moose Mckeon MD Unavailable Reason for Visit * Reason Comments Refill Request Encounter Details Care Team Description Date Type Department Neeta Xiong MD [address] [place] [address] Refill Request 10/05/2018 Refill [facility] [address] [place] [address] Allergies No Known Allergiesdocumented as of this encounter (statuses as of 10/05/2018) Medications End Date Status Medication Sig Dispensed [...] with long-term current use of insulin Active FREESTYLE RYAN 14 DAY USE 2 [...] week to a max of 1.8mg daily. Active Insulin Silas, Use to inject 600 Each 1 Disposable, (BD ULTRAFINE insulin 6X 9 III MINI PEN) 31 gauge x daily. 16" Ndle DX:E11.8 10/05/2018 Discontinued BD ULTRAFINE III MINI PEN INJECT 1 EACH 500 Each 0 31 gauge x 16" Ndle UNDER THE 9 SKIN 5 (FIVE) TIMES DAILY. documented as of this encounter (statuses as of 10/05/2018) Active Problems Problem Noted Date Pure hypercholesterolemia [...] as of this encounter (statuses as of 10/05/2018) Immunizations Name Administration Dates Next Due Hep [...] Description Date Type Specialty Jenna Fishman MD [address] [place] [address] [phone] 12/31/2018 Office Visit Endocrinology Diabetes & Metabolism [...] MICROALBUMIN 04/12/2017 04/12/2016, 12/30/2014, 06/25/2013 INFLUENZA VACCINE (#1) 2018 12/29/2015, 12/30/2014, 12/06/2012 HgA1C 03/13/2019 09/10/2018, 05/07/2018, 09/20/2017, Additional history exists LDL-C 05/08/2019 05/07/2018, 09/20/2017, 05/15/2017, Additional history exists FOOT EXAM 09/11/2019 09/10/2018, 09/10/2018, 05/07/2018, Additional history exists HEPATITIS C (HCV) SCREEN Completed 08/13/2012 Osteoporosis Screening Completed 08/30/2012 documented as of this encounter Results Not on filedocumented in this encounter Insurance Type Payer Benefit Subscriber ID Effective Phone Address Plan / Dates Group Medicare MEDICARE MEDICARE xxxxxxxxxxx 2012-P [phone] [address] resent [id number] [place] [id number] HMO/PPO/POS [facility] [id number] 2004-P [facility] resent documented as of this encounter
--- OUTSIDE RECORDS SUMMARY | 2018-10-25 23:04 | XMS REPORT | Summary of Care ---
Author Author [facility] - Health Organization [facility] - [facility] Address Unknown Phone Unavailable Care Team Providers Care Bed Control Specialist Name Role Phone Hardeep Lazcano PCP Moose Mckeon MD Unavailable Reason for Visit * Reason Comments Follow-up Diabetes Mellitus II Encounter Details Care Team Description Date Type Department Neeta Xiong MD [address] [place] [address] Uncontrolled type 2 diabetes mellitus with complication, with long-term current use of insulin (Primary Dx); Cirrhosis of liver without ascites, unspecified hepatic cirrhosis type; Pure hypercholesterolemia 09/10/2018 Office Visit [facility] [address] [place] [address] Allergies No Known Allergiesdocumented as [...] Influenza Virus Vaccine (3+ yrs) 12/06/2012 Recent Machinist Bench Visits None Recent Ophthalmology Visits None CREATININE [...] - 45 ug/mL 5 Recent Labs 09/10/18 [id number] 7.1* ASSESSMENT/PLAN Uncontrolled type 2 diabetes mellitus [...] Plan: - Continue follow up with OS firepot operator and tender HLP: Not on statins due to liver [...] shoes to be removed for foot exam. Appfolio 14 day reader downloaded. Reports printed and given to physician to review and address. documented in this encounter Plan of Treatment Care Team Description Date Type Specialty Jenna Fishman MD [address] [place] [address] [phone] 12/31/2018 Office Visit Endocrinology Diabetes & Metabolism [...] Dates Group Medicare MEDICARE MEDICARE xxxxxxxxxxx 2012-P [phone] resent [id number] [place] [phone] HMO/PPO/POS [facility] [id number] 2004-P [facility] resent documented as of this encounter
[2018-10-26 00:08] LABS: BASOPHILS % 0.4 % (0.0-1.0); EOSINOPHILS # (AUTO) 0.2 (0.0-0.4); EOSINOPHILS % 4.2 % (0.0-6.0); HEMATOCRIT 33.9 % (34.2-44.1); HEMOGLOBIN 10.9 g/dL (12.0-16.0); LYMPHOCYTES # (AUTO) 1.1 (1.0-3.2); LYMPHOCYTES % 23.9 % (18.0-39.1); MEAN CORPUSCULAR HGB CONC 32.2 g/dL (31-35); MEAN CORPUSCULAR VOLUME 90.2 fL (81-99); MONOCYTES # (AUTO) 0.6 (0.2-0.8); MONOCYTES % 13.8 % (4.4-11.3); NEUTROPHILS # (AUTO) 2.6 (2.1-6.9); NEUTROPHILS % 57.3 % (38.7-80.0); PLATELET COUNT 191 x10e3/uL (140-360); RED BLOOD COUNT 3.76 x10e6/uL (3.6-5.1); RED CELL DISTRIBUTION WIDTH 15.1 % (11.7-14.4)
[2018-10-26 00:09] LABS: BILIRUBIN,URINE NEGATIVE (NEGATIVE); CLARITY,URINE CLEAR (CLEAR); COLOR,URINE YELLOW (YELLOW); KETONES,URINE NEGATIVE (NEGATIVE); LEUKOCYTE ESTERASE ,URINE NEGATIVE (NEGATIVE); NITRITE,URINE NEGATIVE (NEGATIVE); PROTEIN,URINE DIPSTICK NEGATIVE (NEGATIVE); URINE UROBILINOGEN 0.2 mg/dL (0.2 - 1)
[2018-10-26 00:26] LABS: ALBUMIN 3.1 g/dL (3.5-5.0); ALBUMIN/GLOBULIN RATIO 0.7 (0.8-2.0); ANION GAP 15.6 mmol/L (8-16); CALCIUM 9.7 mg/dL (8.4-10.2); CREATININE, SERUM 1.43 mg/dL (0.57-1.11); POTASSIUM 4.6 mmol/L (3.5-5.1)
[2018-10-26 00:37] LABS: RBC,URINE 0-5 /HPF (0-5)
[2018-10-26 00:38] LABS: BACTERIA,URINE MODERATE /HPF; EPITHELIAL CELLS,URINE FEW /LPF
[2018-10-26 00:53] VITALS: BP 178/79
== END 2018-10-26 01:31 | disposition home or self-care (01) ==
LOC: ER 22:58
DX: E11.649 Type 2 diabetes mellitus with hypoglycemia without coma (principal); N30.90 Cystitis, unspecified without hematuria; I10 Essential (primary) hypertension; Z85.05 Personal history of malignant neoplasm of liver; Z94.4 Liver transplant status
CPT/HCPCS: 36415; 80053; 81001; 82948; 85025; 99283

== ENCOUNTER → 2019-09-11 | Outpatient (CLI) | payer MEDICARE, OTHER ==
[2019-09-11 09:50] LABS: CREATININE, SERUM 1.54 mg/dL (0.57-1.11)
--- NOTE | 2019-09-11 11:28 | Diagnostic Imaging Report ---
CT of the chest, without contrast. History: Pulmonary nodules. Comparison: None available. Technique: Multidetector CT scanning of the chest was performed from the level of the apices to the upper abdomen without contrast. Coronal and sagittal multiplanar reformations were obtained. RADIATION DOSE: Total DLP: 523.72 mGy*cm Dose modulation, iterative reconstruction, and/or weight based adjustment of the mA/kV was utilized to reduce the radiation dose to as low as reasonably achievable. FINDINGS: The thyroid and remaining visualized structures within the base of the neck demonstrate no significant abnormalities. The thoracic aorta is normal course and caliber. The heart is not enlarged. No abnormal pericardial fluid is present. Atherosclerotic calcific indication for noted within the coronary arteries. There is calcification of the mitral valve. There is no abnormal extra, mediastinal, or hilar lymph node enlargement. Calcification noted within the right breast which is not definitively characterized on this CT examination. The trachea and proximal airways are patent. There is a 4 mm pulmonary nodule identified within the right lung apex (axial image 19). Additional smaller pulmonary micronodules are noted within the right upper lobe and subpleural locations bilaterally which appear in a clustered/tree-in-bud configuration and may reflect sequela of small airways disease. There is mild bibasilar atelectasis/dependent density present. There is no evidence for consolidation, pneumothorax, mass, or pleural effusion. The visualized upper abdominal contents are unremarkable for pneumobilia. The osseous structures. No evidence for acute fracture or destructive process. The extrathoracic soft tissues are unremarkable. IMPRESSION: 4 mm pulmonary nodule identified within the right upper lobe. Additional scattered smaller subcentimeter pulmonary nodules noted bilaterally which appear in a clustered/tree-in-bud configuration which may reflect sequela of a small airways infectious/inflammatory process. In this patient with history of pulmonary nodules, no prior examination is available for comparison. Recommend correlation with prior outside imaging if available. If no prior examinations available for comparison, no follow-up examination is warranted in a low-risk patient. In a high-risk patient, consider 12 CT follow up examination. Signed by: Dr. Avila Prince MD on 09/11/2019 11:24 AM
== END ==
LOC: CT 08:21
PROVIDERS: ATTEND Surgery
DX: R91.8 Other nonspecific abnormal finding of lung field (principal); Z94.2 Lung transplant status
CPT/HCPCS: 36415; 71250; 82565; 84520

== ENCOUNTER 2020-07-04 16:28 | Emergency (ER) | payer MEDICARE, OTHER ==
[~2020-07-04] VITALS: Ht 170.2 cm; Wt 104.3 kg
[2020-07-04] MEDS ORDERED: SODIUM CHLORIDE 0.9% 1000ML 1,000 ML IV STA ×3 (16:42→18:25)
[2020-07-04] MEDS ORDERED: SODIUM CHLORIDE 0.9% 1000ML 2,000 ML ONE (16:48)
[2020-07-04] MEDS ORDERED: VANCOMYCIN 1GM/NS 250 ML 250 ML IV STA (16:49)
[2020-07-04] MEDS ORDERED: CEFEPIME 2 GM/NS 0.9% 100 ML 100 ML IV STA (16:49)
[2020-07-04 16:55] LABS: BASOPHILS % 0.2 % (0.0-1.0); HEMATOCRIT 33.6 % (34.2-44.1); LYMPHOCYTES # (AUTO) 0.4 (1.0-3.2); LYMPHOCYTES % 4.1 % (18.0-39.1); MEAN CORPUSCULAR HEMOGLOBIN 28.6 pg (28-32); MEAN CORPUSCULAR HGB CONC 32.7 g/dL (31-35); MEAN CORPUSCULAR VOLUME 87.3 fL (81-99); MONOCYTES # (AUTO) 0.7 (0.2-0.8); MONOCYTES % 7.7 % (4.4-11.3); NEUTROPHILS # (AUTO) 7.3 (2.1-6.9); PLATELET COUNT 156 x10e3/uL (140-360); RED BLOOD COUNT 3.85 x10e6/uL (3.6-5.1); RED CELL DISTRIBUTION WIDTH 14.8 % (11.7-14.4)
[2020-07-04 17:11] LABS: CLARITY,URINE HAZY (CLEAR); COLOR,URINE YELLOW (YELLOW)
[2020-07-04 17:12] LABS: KETONES,URINE NEGATIVE (NEGATIVE); LEUKOCYTE ESTERASE ,URINE NEGATIVE (NEGATIVE); NITRITE,URINE NEGATIVE (NEGATIVE); PROTEIN,URINE DIPSTICK NEGATIVE (NEGATIVE); RBC,URINE 0-5 /HPF (0-5); URINE UROBILINOGEN 2 mg/dL (0.2 - 1); WBC,URINE (MAN) 0-5 /HPF (0-5)
[2020-07-04] MEDS ORDERED: CEFEPIME HCL 1 GM VIAL ONE ×2 (17:12→17:53)
[2020-07-04 17:13] LABS: BACTERIA,URINE FEW /HPF; EPITHELIAL CELLS,URINE FEW /LPF; RENAL EPITHELIAL CELLS,URINE FEW
[2020-07-04] MEDS ORDERED: ACETAMINOPHEN 650 MG SUPP PR ONE ×2 (17:13→17:45)
[2020-07-04 17:14] LABS: ALBUMIN 2.9 g/dL (3.5-5.0); ALBUMIN/GLOBULIN RATIO 0.9 (0.8-2.0); CALCIUM 8.6 mg/dL (8.4-10.2); CREATININE, SERUM 2.26 mg/dL (0.57-1.11); MAGNESIUM 1.3 MG/DL (1.3-2.1)
[2020-07-04 17:20] LABS: CREATINE KINASE MB 1.6 ng/mL (0-5.0)
[2020-07-04 17:23] LABS: B-TYPE NATRIURETIC PEPTIDE2 378.1 pg/mL (0-100)
[2020-07-04 17:33] LABS: BAND NEUTROPHILS % (MANUAL) 14 %; LYMPHOCYTES % (MANUAL) 7 % (19-48); METAMYELOCYTES % (MANUAL) 1 % (0-0); MONOCYTES % (MANUAL) 13 % (3.4-9.0); NEUTROPHILS % (MANUAL) 65 % (40-74); PLATELET ESTIMATE ADEQUATE; PLATELET MORPHOLOGY COMMENT NORMAL; RBC MORPHOLOGY COMMENT NORMAL
[2020-07-04] MEDS ORDERED: SODIUM CHLORIDE 0.9% 1000ML 1,000 ML IV SCH (17:45)
[2020-07-04 18:09] LABS: INR 1.04; PROTHROMBIN TIME 14.2 seconds (11.9-14.5)
[2020-07-04] MEDS ORDERED: DEXTROSE 50% SYRINGE 50 ML IV ONE ×2 (22:15→22:19)
[2020-07-04] MEDS ORDERED: SODIUM BICARBONATE 8.4% INJ 50 ML SYR IV STA (22:25)
[2020-07-04] MEDS ORDERED: DEXTROSE 5%/0.45% SOD CHL 1,000 ML IV ONE (23:48)
[2020-07-05 02:28] VITALS: BP 97/65
== END 2020-07-05 02:19 | disposition other institution (70) ==
LOC: ER 17:01
DX: A41.9 Sepsis, unspecified organism (principal); R50.9 Fever, unspecified; R11.2 Nausea with vomiting, unspecified; R53.1 Weakness; I10 Essential (primary) hypertension; E11.9 Type 2 diabetes mellitus without complications; E78.5 Hyperlipidemia, unspecified; K21.9 Gastro-esophageal reflux disease without esophagitis; Z94.4 Liver transplant status; Z20.822 Contact with and (suspected) exposure to COVID-19
CPT/HCPCS: 36415; 51700; 71045; 74176; 80053; 81001; 82550; 82553; 82948; 83605; 83735; 83880; 84484; 85025; 85610; 85730; 87040; 87071; 87086; 87186; 87205; 93005; 99284; J0692; J3370; J7030 ×2; J7799; U0002